=== PATIENT | female | born 1985 | race Caucasian/White ===

== ENCOUNTER 2020-05-14 15:58 | Inpatient (IN) | payer OTHER ==
[~2020-05-14] VITALS: Ht 162.6 cm; Wt 74.2 kg
[2020-05-14 16:22] LABS: Urine WBC None Seen /hpf (0 - 5)
[2020-05-14 16:39] LABS: Basophils # (auto) 0 10 ^3/uL (0-0.2); Basophils % (auto) 0.1 % (0.0-2.0); Eosinophils # (auto) 0 10 ^3/uL (0-0.8); Hematocrit 39.6 % (36.0-46.0); Hemoglobin 13.8 g/dL (12.2-16.2); Lymphocytes # (auto) 1.6 10 ^3/uL (0.4-5.4); Lymphocytes % (auto) 17.7 % (10.0-50.0); Mean Corpuscular Hgb Conc. 34.9 g/dL (32.0-36.0); Mean Corpuscular Volume 94.4 fL (80.0-100.0); Monocytes # (auto) 0.5 10 ^3/uL (0-1.3); Neutrophils # (auto) 7.1 10 ^3/uL (1.6-8.6); Neutrophils % (auto) 77.2 % (37.0-80.0); Nucleated Red Blood Cells % 0.1 %; Platelet Count (auto) 218 10^3/uL (140-450); Red Blood Cells 4.19 10^6/uL (4.0-5.20); Red Cell Distribution Width 12.7 % (11.8-14.3); White Blood Cell 9.1 10^3/uL (4.4-10.8)
[2020-05-14 16:48] LABS: Calcium 9.8 mg/dL (8.5-10.1)
[2020-05-14 16:58] LABS: Albumin 5.1 g/dL (3.4-5.0); BUN/Creatinine Ratio 21.4; Bilirubin, Total 2.1 mg/dL (0.2-1.0); Total Protein 9.3 g/dL (6.4-8.2)
[2020-05-14 17:06] LABS: Urine Bacteria NONE SEEN /hpf (None Seen); Urine Blood 2+ /uL (Negative); Urine Mucus FEW (None Seen); Urine Specific Gravity 1.035 (1.001-1.035)
[2020-05-14 17:16] LABS: Potassium 2.9 mmol/L (3.5-5.1)
[2020-05-14] MEDS ORDERED: SODIUM CHLORIDE 0.9% 1,000 ML IVB ONE (17:45)
[2020-05-14 18:08] LABS: Blood Alcohol < 3.0 mg/dL (0-5); Lipase 239 U/L (73-393)
[2020-05-14 18:16] LABS: Alcohol, Urine < 3.0 mg/dL (0-10); Amphetamine Screen, Urine NEGATIVE (NEGATIVE); Barbiturate Scree,Urine NEGATIVE (NEGATIVE); Benzodiazephine Screen, Urine NEGATIVE (NEGATIVE); Cannabinoid Screen, Urine POSITIVE (NEGATIVE); Cocaine Screen, Urine NEGATIVE (NEGATIVE); Opiate Scree,Urine NEGATIVE (NEGATIVE); Phencyclidine Screen, Urine NEGATIVE (NEGATIVE)
[2020-05-14] MEDS: POTASSIUM CHL 20MEQ/100ML 100 ML IV SCH ×2 (19:45→21:45)
[2020-05-14] MEDS ORDERED: MORPHINE SULF INJ 2 MG/ML SYRINGE 1ML IV ONE (20:15)
[2020-05-14] MEDS ORDERED: ONDANSETRON HCL 4 MG/2 ML VIAL IV ONE (20:15)
[2020-05-14] MEDS ORDERED: THIAMINE 100mg/ml INJ (200mg/2ml VIAL) IV ONE (20:15)
[2020-05-14] MEDS ORDERED: LIDOCAINE VISCOUS 2% 15ML UD MT ONE (22:15)
[2020-05-14] MEDS ORDERED: DONNATAL 5ml ORAL Elix (BELLADONNA ALK-PHENOBARB) PO ONE (22:15)
[2020-05-14] MEDS ORDERED: SUCRALFATE 1 GM/10 ML ORAL SUSP PO ONE (22:15)
[2020-05-14] MEDS ORDERED: FAMOTIDINE 20 MG TAB PO ONE (22:15)
[2020-05-14] MEDS ORDERED: ACETAMINOPHEN 325 MG TAB PO PRN (23:15)
[2020-05-14] MEDS ORDERED: NITROGLYCERIN 0.4 MG SL TAB SL PRN (23:15)
[2020-05-14] MEDS ORDERED: MORPHINE SULF INJ 2 MG/ML SYRINGE 1ML IV PRN (23:15)
[2020-05-14] MEDS ORDERED: HYDROcodone-ACET 5/325MG TAB PO PRN (23:15)
[2020-05-14] MEDS ORDERED: TEMAZEPAM 15 MG CAP PO PRN (23:15)
[2020-05-14] MEDS ORDERED: hydrALAZINE HCL 20 MG/ML VL IV PRN (23:30)
[2020-05-15] VITALS (8 sets, daily range): BP systolic 116–153; BP diastolic 79–104
[2020-05-15] MEDS: D5W/SOD CHL 0.45% 1,000 ML IV SCH ×2 (01:12→12:35)
[2020-05-15] MEDS: MORPHINE SULFATE 4 MG/ML SYR/VIAL IV PRN ×3 (01:12→22:34)
[2020-05-15] MEDS: ONDANSETRON HCL 4 MG/2 ML VIAL IV PRN ×3 (01:13→22:34)
[2020-05-15 05:46] LABS: Basophils # (auto) 0 10 ^3/uL (0-0.2); Basophils % (auto) 0.2 % (0.0-2.0); Eosinophils # (auto) 0 10 ^3/uL (0-0.8); Hematocrit 37.3 % (36.0-46.0); Lymphocytes % (auto) 12.5 % (10.0-50.0); Mean Corpuscular Hemoglobin 33.1 pg (28.0-32.0); Mean Corpuscular Hgb Conc. 34.8 g/dL (32.0-36.0); Mean Corpuscular Volume 95.3 fL (80.0-100.0); Monocytes # (auto) 0.3 10 ^3/uL (0-1.3); Monocytes % (auto) 3.8 % (0.0-12.0); Neutrophils # (auto) 6.6 10 ^3/uL (1.6-8.6); Neutrophils % (auto) 83.5 % (37.0-80.0); Platelet Count (auto) 168 10^3/uL (140-450); Red Blood Cells 3.91 10^6/uL (4.0-5.20); Red Cell Distribution Width 12.8 % (11.8-14.3); White Blood Cell 7.9 10^3/uL (4.4-10.8)
[2020-05-15 06:07] LABS: Albumin 4.3 g/dL (3.4-5.0); BUN/Creatinine Ratio 24.5; Calcium 8.3 mg/dL (8.5-10.1); Potassium 3.2 mmol/L (3.5-5.1)
[2020-05-15 06:23] LABS: Bilirubin, Total 1.8 mg/dL (0.2-1.0); Total Protein 7.7 g/dL (6.4-8.2)
[2020-05-15] MEDS ORDERED: SUCRALFATE 1 GM/10 ML ORAL SUSP PO SCH (07:00)
[2020-05-15] MEDS ORDERED: THIAMINE HCL 100 MG TAB PO SCH (10:00)
[2020-05-15] MEDS ORDERED: FOLIC ACID 1 MG TAB PO SCH (10:00)
[2020-05-15] MEDS ORDERED: FAMOTIDINE (10MG/ML) 2ML VL IV SCH (10:00)
[2020-05-15] MEDS: ZINC SULFATE 220mg CAP or TAB PO SCH (10:05)
[2020-05-15] MEDS: MULTIPLE VITAMIN TAB PO SCH (10:06)
[2020-05-15] MEDS: ASCORBIC ACID 500 MG TAB PO SCH ×2 (10:06→21:35)
[2020-05-15] MEDS: ENOXAPARIN SOD 60 MG/0.6 ML SYRINGE SC SCH (10:06)
[2020-05-15] MEDS ORDERED: POTASSIUM EFFERVESENT TAB 25 MEQ PO ONE (11:15)
[2020-05-15] MEDS: SUCRALFATE 1 GM/10 ML ORAL SUSP PO SCH ×3 (12:40→21:35)
[2020-05-15] MEDS: FOLIC ACID 1 MG, MULTIPLE VITAMIN 10 ML, MAGNESIUM SULF SDV 50% 8 MEQ, THIAMINE INJ 100... INJ SCH ×5 (15:00)
[2020-05-15] MEDS: PANTOPRAZOLE 40 MG TAB PO SCH ×2 (15:01→21:36)
[2020-05-15] MEDS: POTASSIUM EFFERVESENT TAB 25 MEQ PO SCH (21:36)
[2020-05-16] MEDS: D5W/SOD CHL 0.45% 1,000 ML IV SCH ×2 (01:02→15:15)
[2020-05-16 05:03] VITALS: BP 121/85
[2020-05-16] MEDS: SUCRALFATE 1 GM/10 ML ORAL SUSP PO SCH ×4 (06:21→21:11)
[2020-05-16] MEDS ORDERED: LIDOCAINE VISCOUS 2% 15ML UD ONE (08:09)
[2020-05-16] MEDS ORDERED: diphenhdrAMINE HCL 50 MG/1 ML VL ONE (08:10)
[2020-05-16 08:35] VITALS: BP 122/74
[2020-05-16] MEDS: ZINC SULFATE 220mg CAP or TAB PO SCH (10:00)
[2020-05-16] MEDS: ASCORBIC ACID 500 MG TAB PO SCH ×2 (10:00→21:11)
[2020-05-16] MEDS: ENOXAPARIN SOD 60 MG/0.6 ML SYRINGE SC SCH (10:00)
[2020-05-16] MEDS: MULTIPLE VITAMIN TAB PO SCH (10:00)
[2020-05-16 13:00] VITALS: BP 107/71
[2020-05-16] MEDS: fentaNYL CITRATE 100 MCG/2 ML VL ONE ×2 (13:06→13:09)
[2020-05-16] MEDS: MIDAZOLAM HCL 5 MG/ML-1ML VIAL ONE ×2 (13:06→13:09)
[2020-05-16] MEDS: POTASSIUM EFFERVESENT TAB 25 MEQ PO SCH ×2 (14:16→21:11)
[2020-05-16] MEDS: PANTOPRAZOLE 40 MG TAB PO SCH ×2 (14:16→21:11)
[2020-05-16] MEDS: FOLIC ACID 1 MG, MULTIPLE VITAMIN 10 ML, MAGNESIUM SULF SDV 50% 8 MEQ, THIAMINE INJ 100... INJ SCH ×5 (14:47)
[2020-05-16 17:00] VITALS: BP 92/60
[2020-05-16 22:00] VITALS: BP 100/63
[2020-05-17] MEDS: D5W/SOD CHL 0.45% 1,000 ML IV SCH (04:59)
[2020-05-17 05:00] VITALS: BP 104/70
[2020-05-17] MEDS: SUCRALFATE 1 GM/10 ML ORAL SUSP PO SCH ×2 (06:09→11:30)
[2020-05-17 09:00] VITALS: BP 118/77
[2020-05-17] MEDS: POTASSIUM EFFERVESENT TAB 25 MEQ PO SCH (09:42)
[2020-05-17] MEDS: PANTOPRAZOLE 40 MG TAB PO SCH (09:42)
[2020-05-17] MEDS: ASCORBIC ACID 500 MG TAB PO SCH (09:42)
[2020-05-17] MEDS: ZINC SULFATE 220mg CAP or TAB PO SCH (09:42)
[2020-05-17] MEDS: MULTIPLE VITAMIN TAB PO SCH (09:42)
[2020-05-17] MEDS: ENOXAPARIN SOD 60 MG/0.6 ML SYRINGE SC SCH (09:44)
[2020-05-17] MEDS ORDERED: MIDAZOLAM HCL 1MG/1ML-2 ML VIAL IV ONE (10:23)
[2020-05-17] MEDS: FOLIC ACID 1 MG, MULTIPLE VITAMIN 10 ML, MAGNESIUM SULF SDV 50% 8 MEQ, THIAMINE INJ 100... INJ SCH ×5 (12:00)
[2020-05-17 13:00] VITALS: BP 117/72
[2020-05-17 13:04] VITALS: BP 117/72
== END 2020-05-17 14:15 | disposition home or self-care (01) | DRG 241 ==
LOC: ER 16:05 → TELE-CENTR 23:23
PROVIDERS: ADMIT Nurse Practitioner Family; ATTEND Family Medicine
PROC: 0DB68ZX Excision of Stomach, Via Natural or Artificial Opening Endoscopic, Diagnostic (ICD-10-PCS; principal; 2020-05-16 13:12)
DX: K29.71 Gastritis, unspecified, with bleeding (principal); K29.81 Duodenitis with bleeding; K20.91 Esophagitis, unspecified with bleeding; E87.6 Hypokalemia; E83.59 Other disorders of calcium metabolism; F10.129 Alcohol abuse with intoxication, unspecified; F12.10 Cannabis abuse, uncomplicated; I10 Essential (primary) hypertension; E86.0 Dehydration; K44.9 Diaphragmatic hernia without obstruction or gangrene; F17.210 Nicotine dependence, cigarettes, uncomplicated; Z20.822 Contact with and (suspected) exposure to COVID-19; Z82.49 Family history of ischemic heart disease and other diseases of the circulatory system; Z87.11 Personal history of peptic ulcer disease; Z88.8 Allergy status to other drugs, medicaments and biological substances; N29 Other disorders of kidney and ureter in diseases classified elsewhere
CPT/HCPCS: 36415; 74176; 80053; 80307; 80320; 81001; 81025; 83690; 83735; 84702; 85025; 87426; 96365; 96366; 96375; G0378; J2250; J2405; J3480; J3490

== ENCOUNTER 2021-02-14 15:16 | Emergency (ER) | payer OTHER ==
[~2021-02-14] VITALS: Ht 162.6 cm; Wt 77.1 kg
[2021-02-14] MEDS ORDERED: SODIUM CHLORIDE 0.9% 1,000 ML IV ONE ×2 (16:15)
[2021-02-14] MEDS ORDERED: THIAMINE 100mg/ml INJ (200mg/2ml VIAL) IV ONE (16:15)
[2021-02-14 16:41] LABS: Basophils # (auto) 0 10 ^3/uL (0-0.2); Basophils % (auto) 0.1 % (0.0-2.0); Eosinophils # (auto) 0 10 ^3/uL (0-0.8); Hematocrit 44.2 % (36.0-46.0); Hemoglobin 15.2 g/dL (12.2-16.2); Lymphocytes # (auto) 0.5 10 ^3/uL (0.4-5.4); Lymphocytes % (auto) 4.5 % (10.0-50.0); Mean Corpuscular Hemoglobin 31.4 pg (28.0-32.0); Mean Corpuscular Hgb Conc. 34.5 g/dL (32.0-36.0); Mean Corpuscular Volume 91.1 fL (80.0-100.0); Monocytes # (auto) 0.5 10 ^3/uL (0-1.3); Monocytes % (auto) 4.3 % (0.0-12.0); Neutrophils # (auto) 10.6 10 ^3/uL (1.6-8.6); Neutrophils % (auto) 91.1 % (37.0-80.0); Red Blood Cells 4.85 10^6/uL (4.0-5.20); Red Cell Distribution Width 13.6 % (11.8-14.3); White Blood Cell 11.6 10^3/uL (4.4-10.8)
[2021-02-14] MEDS ORDERED: ONDANSETRON HCL 4 MG/2 ML VIAL ONE (16:41)
[2021-02-14] MEDS ORDERED: ONDANSETRON HCL 4 MG/2 ML VIAL IV ONE (16:45)
[2021-02-14 17:10] LABS: Albumin 5.5 g/dL (3.4-5.0); BUN/Creatinine Ratio 22.9; Calcium 10.2 mg/dL (8.5-10.1); Potassium 3.1 mmol/L (3.5-5.1)
[2021-02-14 17:13] LABS: Bilirubin, Total 2.7 mg/dL (0.2-1.0); Total Protein 9.3 g/dL (6.4-8.2)
[2021-02-14 18:39] LABS: Urine Bacteria NONE SEEN /hpf (None Seen); Urine Blood 2+ /uL (Negative); Urine Mucus FEW (None Seen); Urine Specific Gravity 1.045 (1.001-1.035); Urine WBC 1 /hpf (0 - 5)
[2021-02-14 21:25] VITALS: BP 146/94
== END 2021-02-14 21:30 | disposition home or self-care (01) ==
LOC: ER 15:16
DX: R11.2 Nausea with vomiting, unspecified (principal); F10.20 Alcohol dependence, uncomplicated; F17.210 Nicotine dependence, cigarettes, uncomplicated; F12.10 Cannabis abuse, uncomplicated; Z88.1 Allergy status to other antibiotic agents; Y90.8 Blood alcohol level of 240 mg/100 ml or more
CPT/HCPCS: 36415; 80053; 81001; 85025; 96361; 96374; 96375; 99285; J2405; J3411; J7030

== ENCOUNTER 2021-05-15 21:49 | Emergency (ER) | payer OTHER ==
[~2021-05-15] VITALS: Ht 160 cm; Wt 74.8 kg
[2021-05-15] MEDS ORDERED: HYDROmorphone HCL 2 MG/ML VL IM ONE (23:45)
[2021-05-15] MEDS ORDERED: ONDANSETRON ODT 4 MG TAB PO ONE (23:45)
[2021-05-16 00:25] VITALS: BP 130/82
[2021-05-16] MEDS ORDERED: ACE3T PO (00:32)
== END 2021-05-16 00:38 | disposition home or self-care (01) ==
LOC: ER 21:51
DX: S42.402A Unspecified fracture of lower end of left humerus, initial encounter for closed fracture (principal); F17.210 Nicotine dependence, cigarettes, uncomplicated; Z88.1 Allergy status to other antibiotic agents; W18.39XA Other fall on same level, initial encounter; Y93.89 Activity, other specified; Y92.89 Other specified places as the place of occurrence of the external cause; Y99.8 Other external cause status
CPT/HCPCS: 73080; 81025; 96372; 99284; J1170; Q0162

== ENCOUNTER 2022-03-28 21:38 | Emergency (ER) | payer OTHER ==
[~2022-03-28] VITALS: Ht 160 cm; Wt 60.0 kg
[~2022-03-28 21:38] MED LIST: ACE3T PO
[2022-03-29 00:17] LABS: Basophils # (auto) 0 10 ^3/uL (0-0.2); Eosinophils # (auto) 0 10 ^3/uL (0-0.8); Monocytes # (auto) 0.6 10 ^3/uL (0-1.3); White Blood Cell 10.9 10^3/uL (4.4-10.8)
[2022-03-29 00:18] LABS: Basophils % (auto) 0.2 % (0.0-2.0); Hematocrit 55.1 % (36.0-46.0); Hemoglobin 18.6 g/dL (12.2-16.2); Lymphocytes % (auto) 9.1 % (10.0-50.0); Mean Corpuscular Hemoglobin 32.3 pg (28.0-32.0); Mean Corpuscular Hgb Conc. 33.7 g/dL (32.0-36.0); Mean Corpuscular Volume 95.8 fL (80.0-100.0); Monocytes % (auto) 5.6 % (0.0-12.0); Neutrophils # (auto) 9.2 10 ^3/uL (1.6-8.6); Neutrophils % (auto) 85.1 % (37.0-80.0); Nucleated Red Blood Cells % 0.2 %; Red Blood Cells 5.75 10^6/uL (4.0-5.20); Red Cell Distribution Width 14.6 % (11.8-14.3)
[2022-03-29 00:34] LABS: BUN/Creatinine Ratio 34.3; Calcium 11.3 mg/dL (8.5-10.1); Potassium 3.7 mmol/L (3.5-5.1)
[2022-03-29 00:37] LABS: Bilirubin, Total 1.9 mg/dL (0.2-1.0); Salicylate < 1.7 mg/dL (2.8-20.0); Total Protein 9.7 g/dL (6.4-8.2)
[2022-03-29 00:53] LABS: Acetaminophen < 2.0 ug/mL (10-30)
[2022-03-29] MEDS ORDERED: chlordiazePOXIDE HCL 25 MG CAP PO ONE (02:15)
[2022-03-29] MEDS ORDERED: ONDANSETRON ODT 4 MG TAB PO ONE (02:15)
[2022-03-29 02:40] VITALS: BP 133/95
== END 2022-03-29 02:43 | disposition home or self-care (01) ==
LOC: ER 21:38
DX: F41.9 Anxiety disorder, unspecified (principal); J45.909 Unspecified asthma, uncomplicated; F17.210 Nicotine dependence, cigarettes, uncomplicated; F12.10 Cannabis abuse, uncomplicated; E86.0 Dehydration; F10.129 Alcohol abuse with intoxication, unspecified; Z88.1 Allergy status to other antibiotic agents; Y90.8 Blood alcohol level of 240 mg/100 ml or more
CPT/HCPCS: 36415; 71045; 80053; 80320; 80329; 85025; 99284; Q0162